=== PATIENT | female | born 1975 | race African-American/Black ===

== ENCOUNTER 2016-08-19 13:56 | Observation (INO) ==
--- NOTE | 2016-08-19 16:15 | Hospitalist History & Physical ---
<Yuko Espinal - Last Filed: 08/19/16 16:10> Assessment and Plan - Time spent with patient Time spent with patient: Greater than 30 minutes (1) Pseudotumor Status: Acute Assessment and plan: Ms. White is a 41-year-old -[place] female with history of pseudotumor who is now 5 days status post lumbar puncture. She has had sustained migraine since lumbar puncture. She is being admitted for Dr. Delgado for blood patch. Dr. Reynaga will see and examine patient and further recommendations to follow. Current Visit: Yes (2) Migraine Status: Acute Current Visit: Yes History of Present Illness Chief complaint: Migraine History of present illness: Ms. Shearer is a 41 year old -[place] female sent as a direct at admit from Dr. Delgado's office with pseudotumor and migraines. Dr. Powers from pain management did a lumbar puncture last Friday and patient has had a headache ever since then. She went to his office this morning and was then sent to Dr. Delgado's office. Hospital medicine is admitting for Dr. Delgado. Patient has no prior medical history other than the pseudotumor that was diagnosed in 2011. She has received several lumbar punctures in the meantime and has never had to have a blood patch. Patient denies dizziness, dysphasia, chest pain, shortness of breath, abdominal pain, or lower extremity edema. Dr. Reynaga is admitting hospitalist. Home Medications Medication Instructions Recorded Confirmed Type Ibuprofen 200 mg PO Q8H PRN 08/14/16 08/14/16 History acetaZOLAMIDE TAB [Diamox Tab] 250 mg PO BID 08/14/16 08/14/16 History Allergies Allergy/AdvReac Type Severity Reaction Status Date / Time No Known Allergies Allergy Verified 07/05/14 09:24 Medical,Surgical,& Family Hx - Medical History Neurology: No history of: Seizures Reproductive: No history of: Breast Cancer - Surgical History Abdominal Surgeries: Surgical HX of: Cholecystectomy - Family History Family History: Reports;: Family Heart Disease - Social History Smoking Status: Never smoker Frequency of Alcohol Use: None Type of Drug Use: None Marital Status: Lives With:: Spouse Functional capacity: independent ambulation Review of systems: A complete 10 system review of systems was obtained and pertinent positives and negatives per HPI Exam - Constitutional Vitals: Period Temp Pulse Resp BP Sys/Maldonado Pulse Ox Last 24 Hr 98.6 F 77 18 155/71 100 Exam: Constitutional System: No distress. No tremulousness. Head: Normocephalic, atraumatic. Ears, Nose and Throat System: No evidence of Otitis or Mastoiditis. No epistaxis or discharge Eyes System: Pupils equal, round, and reactive. Extraocular muscles intact. Neck: Supple, without adenopathy, No jugular venous distention. No thyromegaly, neck mass, or prior surgery apparent. Respiratory System: Chest clear to auscultation. Cardiovascular System: Heart with regular rate and rhythm. No murmur. GI System: Abdomen soft, nontender. Normo active bowel sounds present. Musculoskeletal System: limbs with no pedal edema. Full distal pulses. Neurological System: No discernable sensory deficit. No aphasia Psychiatric System: Conversation is rational <Anmol Reynaga - Last Filed: 08/19/16 17:56> Assessment and Plan (1) Pseudotumor Status: Acute Assessment and plan: Patient with history of psuedotumor cerebri; restart diuretics with improvement in symptoms after blood patch procedure Current Visit: Yes (2) Migraine Status: Acute Assessment and plan: suspect post dural puncture headache; patient going for blood patch procedure; will monitor Current Visit: Yes History of Present Illness History of present illness: Exam - Constitutional Vitals: Period Temp Pulse Resp BP Sys/Maldonado Pulse Ox Last 24 Hr 98.6 F 77 18 155/71 100
[2016-08-19] MEDS ORDERED: PROMETHAZINE 25 MG/1 ML VIAL IM PRN (16:18)
[2016-08-19] MEDS ORDERED: ONDANSETRON 4 MG/2 ML VIAL IV PRN (16:18)
[2016-08-19] MEDS ORDERED: guaiFENesin/DM ER 600-30 MG TABLET PO PRN (16:18)
[2016-08-19] MEDS ORDERED: MORPHINE 2 MG/1 ML SYRINGE IV PRN (16:18)
[2016-08-19] MEDS ORDERED: diphenhydrAMINE CAP 25 MG CAPSULE PO PRN (16:18)
[2016-08-19] MEDS ORDERED: DOCUSATE SODIUM 100 MG CAPSULE PO PRN (16:18)
[2016-08-19] MEDS ORDERED: ACETAMINOPHEN 325 MG TABLET PO PRN ×2 (16:18)
[2016-08-19] MEDS ORDERED: ENOXAPARIN 40 MG/0.4 ML SYRINGE SUBCUT SCH (16:30)
--- NOTE | 2016-08-19 17:59 | Anesthesia Procedures ---
Anesthesia Procedures - Epidural Position: sitting position Epidural procedure: sterile prep of the lumbar area, 18 G needle into (17g), Negative for CSF and Heme, negative for paresthesia passed (1658-epidural blood patch per Dr. Naman Heredia. Autologous blood collected via 18g needle under sterile technique left antecubital-20ml autologous blood administered thru 17g tuohy. Tolerated procedure well. No complications. )
[2016-08-19] MEDS ORDERED: LACTATED RINGERS 1,000 ML IV ONE (18:15)
[2016-08-19 18:56] LABS: Basophils % 0.4 % (0.0-0.8); Eosinophils # 0.2 10*3/uL (0.0-0.87); Eosinophils % 2.2 % (0.00-10.9); Hemoglobin 10.9 GM/DL (12.0-16.0); Immature Granulocytes % 0.3 %; Immature Granulocytes Absolute 0.02 #; Lymphocytes # 2.7 10*3/uL (1.4-4.0); Lymphocytes % 36.2 % (21.3-54.2); Mean Corpuscular HGB Conc 35.2 GM/DL (32-36); Mean Corpuscular Hemoglobin 30 PG (27-34); Mean Corpuscular Volume 86.4 FL (87-102); Mean Platelet Volume 10.2 FL (9.6-12.0); Monocytes # 0.6 10*3/uL (0.11-0.8); Monocytes % 7.9 % (1.7-12.7); Platelet Count 241 T/CUMM (130-400); Red Blood Count 3.59 MC/CUMM (3.8-5.5); Red Cell Distribution Width 13.3 % (9.3-17.3); White Blood Count 7.4 T/CUMM (4-12)
[2016-08-19 19:13] LABS: Calcium 8.3 MG/DL (8.5-10.1); Potassium 3.5 MMOL/L (3.5-5.1)
[2016-08-19] MEDS: PANTOPRAZOLE 40 MG TABLET PO SCH (20:53)
[2016-08-19] MEDS: SODIUM CHLORIDE 0.9% 1,000 ML IV SCH (20:53)
[2016-08-19] MEDS ORDERED: SUMAtriptan 6 MG/0.5 ML VIAL SUBCUT PRN (22:59)
[2016-08-19] MEDS: BUTALBITAL/ACETAMIN/CAFFEINE 50-325-40 MG TABLET PO PRN (23:46)
[2016-08-20] MEDS: SODIUM CHLORIDE 0.9% 1,000 ML IV SCH ×3 (03:13→10:40)
[2016-08-20] MEDS: BUTALBITAL/ACETAMIN/CAFFEINE 50-325-40 MG TABLET PO PRN (03:21)
[2016-08-20] MEDS: PANTOPRAZOLE 40 MG TABLET PO SCH (09:25)
--- NOTE | 2016-08-20 09:34 | Discharge Summary ---
Hospital Course - Hospital Course Hospital Course: Patient has a history of pseudotumor cerebri and underwent LP a few days ago last week. She presented to her neurologist, Dr. Delgado who admitted her to the hospital for blood patch procedure. Patient underwent the procedure, and there were no complications. She states that her headache has improved. She notes some muscle tightness in the back of her head. She denies any n/v/blurred vision/tinnitus/photophobia/phonophobia/tingling/weakness. Currently, she is hemodynamically and clinically stable. Her COREAS has improved. Currently, she has a tension COREAS. Will give mobic. She may benefit from flexeril in the future. She will need to follow up with Dr. Delgado in 2 weeks. She is safe for discharge. Diagnosis - Discharge Diagnosis (1) Pseudotumor Status: Acute (2) Migraine Status: Acute Discharge Plan - Discharge Medications New Lansoprazole Odt Tab [Prevacid Solutab] 30 mg PO DAILY #30 tablet Meloxicam [Mobic] 7.5 mg PO DAILY #30 tablet - Follow Up or Referral Follow Up: Donny Delgado MD [Physician] - - Forms/Instructions Exam - Constitutional Vitals: Period Temp Pulse Resp BP Sys/Maldonado Pulse Ox Last 24 Hr 97.6 F-98.6 F 77-87 18-20 111-172/42-92 98-100 General appearance: no acute distress - Head Head exam: Present: normocephalic (tenderness upon palpation of occipital area; no temporal artery tenderness, normal ROM) - Eye Eye exam: Present: EOMI Pupils: Present: XIANG - Neck Neck exam: Present: normal inspection - Respiratory Respiratory exam: Present: clear to auscultation bilaterally - Cardiovascular Cardiovascular exam: Present: regular rate and rhythm - GI/Abdominal GI/Abdominal exam: Present: normal bowel sounds - Neurological Exam Neurological exam: Present: alert, oriented X3, CN II-XII intact, motor sensory deficit, reflexes normal - Psychiatric Psychiatric exam: Present: normal affect, normal mood Discharge Results Labs on day of discharge: Labs from last 24 hours 08/19/16 08/19/16 18:45 18:44 WBC 7.4 RBC 3.59 L Hgb 10.9 L Hct 31.0 L MCV 86.4 L MCH 30 MCHC 35.2 RDW 13.3 Plt Count 241 MPV 10.2 Neut % (Auto) 53.0 Lymph % (Auto) 36.2 Pacific % (Auto) 7.9 Eos % (Auto) 2.2 Baso % (Auto) 0.4 Neut # (Auto) 4.0 Lymph # (Auto) 2.7 Pacific # (Auto) 0.6 Eos # (Auto) 0.2 Baso # (Auto) 0.0 Immature Gran % 0.3 Nucleated RBC % 0.0 Immature Gran # 0.02 Nucleated RBCs # 0.00 Sodium 143 Potassium 3.5 Chloride 109 H Carbon Dioxide 24 Anion Gap 13.5 BUN 6 L Creatinine 0.70 GFR Calculation 159 BUN/Creatinine Ratio 8.00 Glucose 81 Calculated Osmolality 281.0 Calcium 8.3 L DS: Provider Date of admission: 08/19/16 14:32 Primary care physician: Nonstaff Physician Dr. Lian Spencer Attending physician on admission: Anmol Reynaga MD Consults: 08/19/16 14:10 Consult to Physician [CONS] Routine Comment: needs blood patch Consulting Provider: Naman Heredia When should Consulting Provider be notified: Now 08/19/16 14:14 Consult to Physician [CONS] Routine Comment: pseudotumor and migraines Consulting Provider: Donny Delgado When should Consulting Provider be notified: Now Person Notified: [email or web address] Date Notified: 08/19/16 Time Notified: 15:22 Discharging clinician: Anmol Reynaga MD
[2016-08-20 10:55] VITALS: BP 144/86
--- NOTE | 2016-08-20 14:21 | Neurology Consult Note ---
History of Present Illness History of present illness: 41 years old right-handed -[place] lady without significant past medical history except chronic migraine headaches underwent a spinal tap by Dr. Powers recently last week and post LP developed severe headache. We did try to treat her as an outpatient but nothing really worked. We did a spinal tap to rule out pseudotumor cerebri. She she received Toradol and some other pain medication as an outpatient without any relief. She was admitted for blood patch. She did get blood pressure yesterday and also received an injection of Imitrex. This morning her headache has resolved pretty much completely. She is able to get up and walk around and no headaches reported. Of note her opening pressure was 17 and closing pressure was 14. No signs of pseudotumor cerebri were seen. She has received several lumbar punctures in the meantime and has never had to have a blood patch. Patient denies dizziness, dysphasia, chest pain, shortness of breath, abdominal pain, or lower extremity edema. Home Medications Medication Instructions Recorded Confirmed Type Lansoprazole Odt Tab [Prevacid 30 mg PO DAILY #30 tablet 08/20/16 Rx Solutab] Meloxicam [Mobic] 7.5 mg PO DAILY #30 tablet 08/20/16 Rx Allergies Allergy/AdvReac Type Severity Reaction Status Date / Time No Known Allergies Allergy Verified 07/05/14 09:24 12 point system: reviewed and no additional remarkable complaints except as stated Medical,Surgical,& Family Hx - Medical History Neurology: No history of: Seizures Reproductive: No history of: Breast Cancer - Surgical History Abdominal Surgeries: Surgical HX of: Cholecystectomy - Family History Family History: Reports;: Family Heart Disease - Social History Smoking Status: Never smoker Frequency of Alcohol Use: None Type of Drug Use: None Exam - Constitutional Vitals: Period Temp Pulse Resp BP Sys/Maldonado Pulse Ox Last 24 Hr 97.6 F-98.6 F 77-94 18-20 111-172/42-92 95-100 Exam: GENERAL: Patient is in no acute distress. NECK: Neck is supple. There is no JVD. No carotid bruits present. No thyroid masses. CVS: First and second heart sounds are normal. There is no S3 present. Regular rate and rhythm. RESPIRATORY: Lungs are clear to auscultation without any rales or rhonchi. ABDOMEN: Soft and non-tender. Bowel sounds are present. There is no hepatosplenomegaly. EXT: There is no palpable edema. Peripheral pulses are present. Skin: No rashes Central Nervous system: General: Alert, awake and Oriented x 3 Speech: Fluent Comprehension: Intact and normal Facial expressions: Normal Cranial Nerves: CN1/Olfactory: Normal CN II/ Optic: Normal, Visual Davidson unreliable CN III, and : XIANG & EOMI CN V: Normal & intact CN VII: face is symmetric CNVIII: Normal CN XI/X/XI/XII: Intact and Normal Motor: Bulk and Tone is normal. Strength in the right 5/5 Strength in the left 5/5 Sensory: Grossly intact for all the modalities of PP, LT and temp sense Reflexes: 1+ and symmetrical Cerebellar function: Normal finger to nose and heel to camejo testing. Toes: Equivocal Gait: Normal heel to heel and toe to toe and tandem walk. Results - Labs CBC & BMP: 08/19/16 18:44 08/19/16 18:45 Assessment and Plan (1) Migraine Status: Acute Assessment and plan: Elavil 25 mg nightly for 2 weeks then 50 mg p.o. at bedtime Continue Imitrex/Fioricet as needed Follow-up in 4-6 week Thank you for the consult Current Visit: Yes Specialty Discharge - Follow Up or Referrals Follow up with: Donny Delgado MD [Physician] - 08/29/16 10:45 am
[2016-08-20] MEDS ORDERED: AMITRIPTYLINE 25 MG TABLET PO SCH (21:00)
== END 2016-08-20 15:35 | disposition home or self-care (01) ==
LOC: N.5E 14:32 → INTOOBSV 14:32
PROVIDERS: ADMIT Internal Medicine; ATTEND Internal Medicine